=== PATIENT | male | born 1940 | race American Indian/Alaskan Native ===

== ENCOUNTER → 2018-01-12 | Outpatient (CLI) | payer MEDICARE, OTHER | LOC: M LRY 18:40 | DX: R50.9 Fever, unspecified (principal) | CPT/HCPCS: 71046; 87880 ==

== ENCOUNTER → 2018-01-12 | Outpatient (REF) | payer MEDICARE, OTHER | LOC: M SFHCLERA 18:32 | DX: R50.9 Fever, unspecified (principal) ==